=== PATIENT | female | born 1960 | race Hispanic/Latino ===

== ENCOUNTER 2018-07-28 13:37 | Emergency (ER) | payer SELFPAY ==
[2018-07-28 14:11] VITALS: BP 150/61; PULSE 108; RESP 18; TEMP 98.7; O2SAT 99
--- NOTE | 2018-07-28 15:00 | ED PDOC ---
HPI: Psych/Substance Abuse Time Seen by Provider: 07/28/18 14:26 Chief Complaint (Nursing): Medical Clearance Chief Complaint (Provider): Medical Clearance History Per: Patient History/Exam Limitations: no limitations Onset/Duration Of Symptoms: Mins Current Symptoms Are (Timing): Better Additional Complaint(s): 58 year old female presents to the ER for an evaluation of lice. Patient states earlier today, a friend of hers told her she has lice. Patient reports no symptoms, pruritus or rash. She states she lives in the assisted. Denies fever, pain. Past Medical History Reviewed: Historical Data, Nursing Documentation, Vital Signs Vital Signs: Last Vital Signs Temp 98.7 F 07/28/18 14:10 Pulse 108 H 07/28/18 14:10 Resp 18 07/28/18 14:10 BP 150/61 07/28/18 14:10 Pulse Ox 99 07/28/18 14:10 - Medical History PMH: No Chronic Diseases - Family History Family History: States: No Known Family Hx - Social History Current smoker - smoking cessation education provided: No Alcohol: None Drugs: Denies - Home Medications Home Medications: Ambulatory Orders Medication Instructions Recorded Permethrin 5% [Permethrin 5% Cream] 1 appl EXT ONCE #1 tube 07/28/18 - Allergies Allergies/Adverse Reactions: Allergies Allergy/AdvReac Type Severity Reaction Status Date / Time No Known Allergies Allergy Verified 07/28/18 14:07 Review of Systems ROS Statement: Except As Marked, All Systems Reviewed And Found Negative Constitutional: Negative for: Fever Skin: Negative for: Rash Psych: Negative for: Suicidal ideation (homicidal ideation) Physical Exam - Reviewed Nursing Documentation Reviewed: Yes Vital Signs Reviewed: Yes - Physical Exam Appears: Positive for: Well, Non-toxic, No Acute Distress Head Exam: Positive for: ATRAUMATIC, NORMAL INSPECTION, NORMOCEPHALIC Skin: Positive for: Normal Color, Warm, Dry. Negative for: Rash Neurologic/Psych: Positive for: Alert, Oriented (x3), Gait (steady). Negative for: Motor/Sensory Deficits - ECG O2 Sat by Pulse Oximetry: 99 (RA) Pulse Ox Interpretation: Normal Medical Decision Making Medical Decision Making: Time: 1426 Patient informed she has no sign of lice infestation. Patient lives in a assisted and she will be prescribed medication. She has verbalized understanding of plan. Clinical Impression: Exposure to head lice Upon provider evaluation patient is medically stable, and requires no further treatment in the ED at this time. Patient will be discharged home with Permethrin 5% cream. Counseling was provided and all questions were answered regarding diagnosis and need for follow up with [facility]. There is agreement to discharge plan. Return if symptoms persist or worsen. Scribe Attestation: Documented by Champ Bruner, acting as a scribe for Reji Grover PA-C Provider Scribe Attestation: All medical record entries made by the Scribe were at my direction and personally dictated by me. I have reviewed the chart and agree that the record accurately reflects my personal performance of the history, physical exam, medical decision making, and the department course for this patient. I have also personally directed, reviewed, and agree with the discharge instructions and disposition. Disposition - Clinical Impression Clinical Impression: Exposure to head lice - Patient ED Disposition Is Patient to be Admitted: No - Disposition Referrals: [facility] [Outside] Disposition: Routine/Home Disposition Time: 14:50 Condition: STABLE Additional Instructions: YOU CURRENTLY DO NOT HAVE A LICE INFESTATION ONLY USED THE PRESCRIBED PERMETHRIN IF YOU DO DEVELOP LICE GARY CEDRICK, thank you for letting us take care of you today. Your provider was Candi Livingston MD and you were treated for POSS LICE. The emergency medical care you received today was directed at your acute symptoms. If you were prescribed any medication, please fill it and take as directed. It may take several days for your symptoms to resolve. Return to the Emergency Department if your symptoms worsen, do not improve, or if you have any other problems. Please contact your doctor or call one of the physicians/clinics you have been referred to that are listed on the Patient Visit Information form that is included in your discharge packet. Bring any paperwork you were given at discharge with you along with any medications you are taking to your follow up visit. Our treatment cannot replace ongoing medical care by a primary care provider outside of the emergency department. Thank you for allowing the [email or web address] team to be part of your care today. If you had an X-Ray or CT scan: A Radiologist will review the ED reading if any change in treatment is needed we will contact you. If you had a blood, urine, or wound culture: It will take several days for the results, if any change in treatment is needed we will contact you. If you had an STI test: It will take 48 hours for the results. Please call after 1 week if you have not heard back. Prescriptions: Permethrin 5% [Permethrin 5% Cream] 1 appl EXT ONCE #1 tube Instructions: General (DC) Forms: [employer] (Georgian) Print Language: DANISH
== END 2018-07-28 14:59 | disposition home or self-care (01) ==
LOC: H.ER 13:37
DX: B85.0 Pediculosis due to Pediculus humanus capitis (principal)